=== PATIENT | female | born 1970 ===

== ENCOUNTER 2024-12-20 07:40 | Outpatient (REF) | payer OTHER, SELFPAY ==
--- NOTE | ~2024-12-20 | US_ITS ---
CLINICAL HISTORY: RUQ PAIN US abdomen limited with duplex and color Doppler Comparison: None Findings: Visualized pancreas is normal. Tail obscured by bowel gas. Liver is normal in size and echotexture. Right lobe length 15.9 cm. No focal hepatic masses. Common duct 1.6 mm diameter. Gallbladder is physiologically distended. No gallstones, sludge or wall abnormalities. Gallbladder polyps measuring 3 x 2 mm and 3 x 3 mm. No pericholecystic fluid. No sonographic Lazaro sign. Main portal vein antegrade. Right kidney measures, 10.8 cm in length. Normal cortical width and echotexture. No hydronephrosis calculus or mass. Impression: 1. No cholelithiasis or evidence of cholecystitis 2. 3 mm gallbladder polyps 3. No sonographic Lazaro's sign This document has been electronically signed by: Ziggy Teague MD on 12/21/2024 11:36:18
--- OUTSIDE RECORDS SUMMARY | 2024-12-20 07:44 | XMS_ITS | Clinical Summary ---
Author Organization [facility] Address [address] [place] [phone] Phone Care Team Providers Care Life Care Planner Name Role Phone Mady Davies CNP, DNP Primary Care Prov ider Mady Davies CNP, SONU Unavailable + Encounters Date Type Department Care Team Description 11/09/2024 Orders Only [facility] Neurology [address] [place] [address] Georgina Reid MA Tremor, unspecified (Primary Dx) from Last 3 Months Social History Tobacco Use Types Packs/Day Years Used Date Smoking Tobacco: Never Assessed Education Answer Date Recorded Are you interested in more education? Not on geoffrey e 11/09/2024 Are you concerned about learning? Not on file 11/09/2024 No 11/09/2024 No 11/09/2024 Digital Access Answer Date Recorded No 11/09/2024 No 11/09/2024 Reliable internet access at home? Not on file 11/09/2024 Device with a working camera? Not on file Sex and Gender Information Value Date Recorded Sex Assigned at Female 11/08/2024 11:36 AM EDT Gender Identity Female 11/08/2024 11:36 AM EDT Sexual Orientation Straight 11/08/2024 11 :36 AM EDT Plan of Treatment Upcoming Encounters Date Type Department Care Team (Late st Contact Info) Description 01/17/2026 1:30 PM EDT Office Visit [facility] Neurology [address] [place] [address] Baljit Nicholson MD [address] [facility], [address] [place] [address] [email or web address] Health Maintenance Due Date Last Done Comments Adult Td,Tdap Booster 1968 LIPID PANEL 1968 DEPRESSION SCREENING 1980 SMOKING Hx and SMOKELESS TOB ACCO SCREENING 02/25/1981 HEPATITIS C SCREENING 02/25/1986 HIV ONE-TIME SCREENING (18-6 5 YEARS) 02/25/1986 PAP SMEAR 02/25/1989 MAMMOGRAM 2008 COLOGUARD 02/25/2013 COLONOSCOPY 02/25/2013 COLORECTAL CANCER SCREENING 02/25/2013 FIT TEST 02/25/2013 FOBT 02/25/2013 SIGMOIDOSCOPY 02/25/2013 VIRTUAL COLONOSCOPY 02/25/2013 PNEUMOCOCCAL VACCINES (50+ y ears) (1 of 1 - PCV) 02/25/2018 ZOSTER VACCINES (1 of 2) 02/25/2018 COVID-19 VACCINE ( - 2023-2 5 season) 2024 HEPATITIS A VACCINES Aged Out No long er eligible based on patient's age to complete this topic HIB VACCINES Aged Out No longer eligi ble based on patient's age to complete this topic MENINGOCOCCAL VACCINES (ACWY) Aged Out No longer eligible based on patient's age to complete this topic Medical Devices Not on file Care Teams Life Care Planner Relationship Specialty Start Date End Date Mady Davies CNP, DNP [address] [place] [address] [email or web address] - General Nurse Practitioner 11/08/24 Mady Davies CNP, DNP [address] [place] [address] [email or web address] Nurse Practitioner 11/08/24 Additional Source Comments The information contained in this document represents components of the legal health record. It is not the complete legal health record.[facility]
== END 2024-12-20 07:41 | disposition home or self-care (01) ==
LOC: HO.UMASIMG 07:40
PROVIDERS: Visit Provider Nurse Practitioner Family
DX: R10.11 Right upper quadrant pain (principal)
CPT/HCPCS: 76705

== ENCOUNTER → 2024-12-20 08:40 | Outpatient (BNV) | payer OTHER, SELFPAY | PROVIDERS: Visit Provider Radiology Diagnostic Radiology | DX: R10.11 Right upper quadrant pain (principal) | CPT/HCPCS: 76705; 93976 ==